=== PATIENT | male | born 1940 | race Caucasian/White ===

== ENCOUNTER 2016-09-24 06:16 | Day surgery (SDC) | payer MEDICARE, BC ==
[2016-09-15 13:41] LABS: HEMATOCRIT 42.6 % (40.0-51.0); HEMOGLOBIN 13.9 g/dL (13.6-17.8)
[2016-09-15 13:53] LABS: BUN (BLOOD UREA NITROGEN) 16 MG/DL (6-23); CALCIUM, SERUM 8.8 MG/DL (8.5-10.4); CHLORIDE, SERUM 107 MMOL/L (96-112); CO2 (CARBON DIOXIDE) 28 MMOL/L (24-34); CREATININE 1.14 MG/DL (0.70-1.30); GFR AFRICAN AMERICAN 72 ML/MIN (>=60); GFR NON AFRICAN AMERICAN 62 ML/MIN (>=60); POTASSIUM, SERUM 3.6 MMOL/L (3.5-5.3); SODIUM, SERUM 144 MMOL/L (135-148)
[2016-09-15 13:54] LABS: GLUCOSE, SERUM 108 MG/DL (60-99)
--- NOTE | ~2016-09-24 | OP ---
Record Of Operation [facility] [address] [place]. 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 PROCEDURE PERFORMED: Second-look procedure, microsuspension direct laryngoscopy with biopsy of right vocal fold. SURGEON: Meron Conrad M.D. HUMAN RESOURCE INTERN: None. ANESTHESIA: General. COMPLICATIONS: None. CONDITION: Stable to recovery. INDICATIONS: A 76-year-old male with a history of stage I vocal cord carcinoma of the right side status post laser excision. He comes today for a second-look procedure. PROCEDURE IN DETAIL: The patient was identified in the preoperative holding, taken back to the operating room, and placed supine on the operating room table. General anesthesia was established with a laser safe endotracheal tube, #6 in size. A time-out was called. The patient procedures were confirmed. He was then prepped and draped in a standard fashion for the operation. Using a moist Ray-Alyssa, the gum was protected on the upper maxillary gum as he had no teeth and his dentures had been removed. A Dedo anterior commissure laryngoscope was placed and the larynx was suspended. The vocal folds were visualized and photographed. The right vocal fold had evidence of a previous CO2 laser excision of a small lesion at the junction of the anterior 1/3 and posterior 2/3 of the vocal fold. There was a small 2 mm area of thin mild leukoplakia. This was infiltrated submucosally with 1% lidocaine with 1:100,000 epinephrine with a 9 cm spinal needle. A instrumentation was used to excise this area using a straight scissor and a cup forcep for retraction. Care was taken to avoid the thyroarytenoid and vocalis muscles. We stayed in the Viola's space. The small sampling was sent for permanent pathology analysis. Adrenaline was placed on the biopsy site. The bleeding was controlled easily. The remainder of the larynx looked very healthy. The laryngoscope was removed along with the moist gauze over his gums and then he was handed to Anesthesia for extubation and returned to recovery. There were no complications. PH/MODL Record Of [address] [address] NAME: FINN MILAN : 40 STATUS : [facility] PAT#: [id number] AGE: 76 ADM/REG DATE : 09/24/16 MR#: [id number] REPORT SERV DATE: 09/24/16 DICTATED BY: MERON CONRAD DATE: 09/24/16 REPORT STATUS : Draft TRANSCRIBED BY: MODL DATE: 09/24/16 Meron Conrad M.D. / [id number] CC: Ozzy Cervantes M.D.
[~2016-09-24 06:16] MED LIST: AUGMENTIN PO; CARDU4 PO; CELEXA20 PO; KLOR-CON 1010 MEQ PO; LIPITOR20 PO; LORT7 PO; MOBIC15 MG PO; MULTI-VIT HP PO; MULTIPLE VIT PO; NEUR100 PO; NEUR600 PO; NEXIUM20 M1 PO; NEXIUM40 PO; NORCO1 TA1 PO; NORV10 PO; Z300 PO
== END 2016-09-24 10:33 | disposition home or self-care (01) ==
LOC: SDC 06:16
PROVIDERS: Specialist
PROC: 0CBT8ZZ Excision of Right Vocal Cord, Via Natural or Artificial Opening Endoscopic (ICD-10-PCS; principal; 2016-09-24 07:45)
DX: D02.0 Carcinoma in situ of larynx (principal); K21.9 Gastro-esophageal reflux disease without esophagitis; G47.33 Obstructive sleep apnea (adult) (pediatric); I10 Essential (primary) hypertension; F32.9 Major depressive disorder, single episode, unspecified; E78.00 Pure hypercholesterolemia, unspecified; M10.9 Gout, unspecified; M19.90 Unspecified osteoarthritis, unspecified site; Z82.49 Family history of ischemic heart disease and other diseases of the circulatory system; Z79.899 Other long term (current) drug therapy; Z90.89 Acquired absence of other organs; Z98.890 Other specified postprocedural states
CPT/HCPCS: 80048; 85014; 85018; 88305; 93005; J2405; J2710; J3010